=== PATIENT | female | born 1995 | race Two or more races ===

== ENCOUNTER 2018-07-06 17:28 | Emergency (ER) | payer MEDICAID ==
[~2018-07-06] VITALS: Ht 165.1 cm; Wt 70.3 kg
[2018-07-06 17:39] VITALS: BP 120/76
[2018-07-06] MEDS ORDERED: BENZOCAINE (DENTAL) 20 % SPRAY 60ML MT ONE (18:45)
[2018-07-06] MEDS ORDERED: cefTRIAXone SOD 1,000 MG VL IM ONE ×2 (19:00)
[2018-07-06] MEDS ORDERED: HYDROcodone-ACET 10/325MG TAB PO ONE ×2 (19:00)
== END 2018-07-06 19:29 | disposition home or self-care (01) ==
LOC: ER 17:38
DX: K03.81 Cracked tooth (principal)
CPT/HCPCS: 96372; 99283; J0696